=== PATIENT | female | born 1970 | race Hispanic/Latino ===

== ENCOUNTER 2016-08-27 16:09 | Emergency (ER) | payer SELFPAY ==
[2016-08-27 16:33] VITALS: BP 143/86
--- NOTE | 2016-08-27 16:46 | Emergency Department Report ---
Chief Complaint: Chest Pain Stated Complaint: MENTAL EVALUATION/BODY PAIN Time Seen by Provider: 08/27/16 16:42 - HPI History of Present Illness: Patient here reports that she woke up in the house and didn't know where she was. She says she thinks she was awake but not sure. She says she's having difficulty breathing and chest pain. She reports that she is suicidal and plan to kill himself by pulling up her heart with crack. Patient says she spent the last 4 days doing crack cocaine. She says she used over $1000 worth of crack cocaine over 4 days. She is complaining the chest pain on the left side is radiating down her left arm. Reports nausea and vomiting. Denies any history of heart disease. She reports she has family history of heart disease. Patient said she is depressed because of the holidays and she doesn't have anyone. He denies any suicide ideation. He reports pain is 10 out of 10 to her chest and it feels like pressure. - ROS Review of Systems: All systems are negative unless stated in HPI above. - Exam Vital Signs: Vital Signs 08/27/16 16:27 Temperature 98.6 F Pulse Rate 89 Respiratory 18 Rate Blood Pressure 143/86 O2 Sat by Pulse 100 Oximetry Physical Exam: General: This is a 46-year-old female well-nourished well-developed appears to be sad and tearful. Psych: Positive suicide ideation with plan to overdose on crack cocaine. Denies any homicidal ideation. Denies any hallucination. CV: S1, S2. Regular Rate and rhythm. MSE screening note: Focused history and physical exam performed. Due to findings the following was ordered:see [facility] ED Medical Decision Making - Medical Decision Making Medical decision making: Patient seen by provider in triage area. Appropriate protocol activated and patient to main ED to be seen by physician. ED Disposition for MSE Condition: Stable
[2016-08-27 16:58] LABS: Basophils % (Auto) 0.5 % (0.0-1.8); Eosinophils % (Auto) 1.1 % (0.0-4.3); Hematocrit 44.6 % (30.3-42.9); Hemoglobin 14.9 gm/dl (10.1-14.3); Mean Corpuscular HGB Conc 34 % (30-34); Mean Corpuscular Hemoglobin 30 pg (28-32); Mean Corpuscular Volume 89 fl (79-97); Platelet Count 383 K/mm3 (140-440); Red Cell Distribution Width 14.1 % (13.2-15.2); White Blood Count 10.4 K/mm3 (4.5-11.0)
--- NOTE | 2016-08-27 17:08 | Emergency Department Report ---
HPI - General Chief Complaint: Chest Pain Time Seen by Provider: 08/27/16 16:42 - HPI HPI: Allison 16 The patient is a 46-year-old female presenting with a chief complaint of suicidal ideation. The patient states she has felt suicidal for 1 week. The patient stated "I tried to blow my heart up"by consuming without [place] crack over 4 days. Patient states she awakened and abandoned building and made a report with the community service patrol officer. The patient states this brought her to the ED for treatment. Patient denies any other ingestions. When asked how she is feeling the patient states she just "aches all over." Location: Mental state, see above Duration: [see above] Quality: Suicidal Severity: Severe Modifying factors: [see above] Context: [see above] Mode of transportation: [not driving] ED Past Medical Hx - Past Medical History Hx Hypertension: Yes Hx GERD: Yes Hx Psychiatric Treatment: Yes (substance abuse, alcoholism) Additional medical history: History of SVT status post cardiac ablation, Obesity - Surgical History Additional Surgical History: Heart ablation, Bariatric surgery, 3 - Family History Family history: no significant - Social History Smoking Status: Current Every Day Smoker (1/2 pack per day) Substance Use Type: Cocaine, Prescribed - Medications Home Medications: Home Medications Medication Instructions Recorded Confirmed Last Taken Type Calcium Carbonate [Calcium] 500 mg PO DAILY 06/22/16 06/22/16 06/22/16 History Lurasidone HCl [Latuda] 120 mg PO QDAY 06/22/16 06/22/16 06/21/16 History Multivitamin with Iron 1 tab PO DAILY 06/22/16 06/22/16 06/22/16 History Omeprazole Magnesium [PriLOSEC Otc] 40 mg PO DAILY 06/22/16 06/22/16 06/22/16 History Quetiapine Fumarate [SEROquel XR] 300 mg PO QDAY 06/22/16 06/22/16 06/14/16 History Rosuvastatin (Nf) [Crestor] 20 mg PO QHS 06/22/16 06/22/16 06/22/16 History Vitamin B-12 1 tab PO DAILY 06/22/16 06/22/16 06/22/16 History lamoTRIgine [LaMICtal] 180 mg PO BID 06/22/16 06/22/16 06/22/16 History ED Review of Systems ROS: Stated complaint: MENTAL EVALUATION/BODY PAIN Other details as noted in HPI Comment: All other systems reviewed and negative Constitutional: denies: chills, fever Eyes: denies: eye pain, eye discharge, vision change ENT: denies: ear pain, throat pain Respiratory: denies: cough, shortness of breath, wheezing Cardiovascular: denies: chest pain, palpitations Endocrine: no symptoms reported Gastrointestinal: denies: abdominal pain, nausea, diarrhea Genitourinary: denies: urgency, dysuria, discharge Musculoskeletal: myalgia Skin: denies: rash, lesions Neurological: denies: headache, weakness, paresthesias Psychiatric: suicidal thoughts Hematological/Lymphatic: denies: easy bleeding, easy bruising Physical Exam - Physical Exam Vital Signs: Vital Signs 08/27/16 16:27 Temperature 98.6 F Pulse Rate 89 Respiratory 18 Rate Blood Pressure 143/86 O2 Sat by Pulse 100 Oximetry Physical Exam: GENERAL: The patient is well-developed female lying on stretcher not appearing to be in acute distress HEENT: Normocephalic. Atraumatic. Extraocular motions are intact. Patient has moist mucous membranes. NECK: Supple. Trachea midline CHEST/LUNGS: Clear to auscultation. There is no respiratory distress noted. HEART/CARDIOVASCULAR: Regular. There is no tachycardia. There is no gallop rub or murmur. ABDOMEN: Abdomen is soft, nontender. Patient has normal bowel sounds. There is no abdominal distention. SKIN: There is no rash. There is no edema. There is no diaphoresis. NEURO: The patient is awake, alert, and oriented. The patient is cooperative. The patient has normal speech MUSCULOSKELETAL:There is no evidence of acute injury. ED Course Vital Signs 08/27/16 16:27 Temperature 98.6 F Pulse Rate 89 Respiratory 18 Rate Blood Pressure 143/86 O2 Sat by Pulse 100 Oximetry ED Medical Decision Making - Lab Data Result diagrams: 08/27/16 16:44 08/27/16 16:44 Laboratory Results - last 24 hr 08/27/16 08/27/16 08/27/16 16:44 16:44 16:44 WBC 10.4 RBC 5.00 Hgb 14.9 H Hct 44.6 H MCV 89 MCH 30 MCHC 34 RDW 14.1 Plt Count 383 Lymph % (Auto) 15.7 [place] % (Auto) 5.6 Eos % (Auto) 1.1 Baso % (Auto) 0.5 Lymph # 1.6 [place] # 0.6 Eos # 0.1 Baso # 0.1 Seg Neutrophils % 77.1 H Seg Neutrophils # 8.0 H Sodium 140 Potassium 3.4 L Chloride 97.3 L Carbon Dioxide 25 Anion Gap 21 BUN 19 H Creatinine 0.7 Estimated GFR > 60 BUN/Creatinine Ratio 27.14 Glucose 114 H Calcium 9.3 Total Bilirubin Direct Bilirubin Indirect Bilirubin AST ALT Alkaline Phosphatase Total Creatine Kinase CK-MB (CK-2) CK-MB (CK-2) Rel Index Troponin T < 0.010 Total Protein Albumin Albumin/Globulin Ratio Urine Color Urine Turbidity Urine pH Ur Specific Sandy Urine Protein Urine Glucose (UA) Urine Ketones Urine Blood Urine Nitrite Urine Bilirubin Urine Urobilinogen Ur Leukocyte Esterase Urine WBC (Auto) Urine RBC (Auto) U Epithel Cells (Auto) Urine Bacteria (Auto) Urine Mucus Urine HCG, Qual Salicylates Urine Opiates Screen Urine Methadone Screen Acetaminophen Ur Barbiturates Screen Ur Phencyclidine Scrn Ur Amphetamines Screen U Benzodiazepines Scrn Urine Cocaine Screen U Marijuana (THC) Screen Drugs of Abuse Note Plasma/Serum Alcohol < 0.01 08/27/16 08/27/16 08/27/16 16:44 16:44 17:00 WBC RBC Hgb Hct MCV MCH MCHC RDW Plt Count Lymph % (Auto) [place] % (Auto) Eos % (Auto) Baso % (Auto) Lymph # [place] # Eos # Baso # Seg Neutrophils % Seg Neutrophils # Sodium Potassium Chloride Carbon Dioxide Anion Gap BUN Creatinine Estimated GFR BUN/Creatinine Ratio Glucose Calcium Total Bilirubin 0.6 Direct Bilirubin < 0.2 Indirect Bilirubin 0.4 AST 17 ALT 16 Alkaline Phosphatase 81 Total Creatine Kinase 107 CK-MB (CK-2) 4.4 H CK-MB (CK-2) Rel Index 4.1 H Troponin T Total Protein 7.0 Albumin 4.3 Albumin/Globulin Ratio 1.6 Urine Color Urine Turbidity Urine pH Ur Specific Sandy Urine Protein Urine Glucose (UA) Urine Ketones Urine Blood Urine Nitrite Urine Bilirubin Urine Urobilinogen Ur Leukocyte Esterase Urine WBC (Auto) Urine RBC (Auto) U Epithel Cells (Auto) Urine Bacteria (Auto) Urine Mucus Urine HCG, Qual Salicylates < 0.3 L Urine Opiates Screen Urine Methadone Screen Acetaminophen Ur Barbiturates Screen Ur Phencyclidine Scrn Ur Amphetamines Screen U Benzodiazepines Scrn Urine Cocaine Screen U Marijuana (THC) Screen Drugs of Abuse Note Plasma/Serum Alcohol 08/27/16 08/27/16 08/27/16 17:00 17:05 17:05 WBC RBC Hgb Hct MCV MCH MCHC RDW Plt Count Lymph % (Auto) [place] % (Auto) Eos % (Auto) Baso % (Auto) Lymph # [place] # Eos # Baso # Seg Neutrophils % Seg Neutrophils # Sodium Potassium Chloride Carbon Dioxide Anion Gap BUN Creatinine Estimated GFR BUN/Creatinine Ratio Glucose Calcium Total Bilirubin Direct Bilirubin Indirect Bilirubin AST ALT Alkaline Phosphatase Total Creatine Kinase CK-MB (CK-2) CK-MB (CK-2) Rel Index Troponin T Total Protein Albumin Albumin/Globulin Ratio Urine Color Devora Urine Turbidity Cloudy Urine pH 5.0 Ur Specific Sandy 1.031 H Urine Protein 100 mg/dl Urine Glucose (UA) Neg Urine Ketones 80 Urine Blood Sm Urine Nitrite Neg Urine Bilirubin Neg Urine Urobilinogen 2.0 Ur Leukocyte Esterase Neg Urine WBC (Auto) 3.0 Urine RBC (Auto) 7.0 U Epithel Cells (Auto) 14.0 H Urine Bacteria (Auto) 1+ Urine Mucus 3+ Urine HCG, Qual Negative Salicylates Urine Opiates Screen Presumptive negative Urine Methadone Screen Presumptive negative Acetaminophen < 15.0 Ur Barbiturates Screen Presumptive negative Ur Phencyclidine Scrn Presumptive negative Ur Amphetamines Screen Presumptive negative U Benzodiazepines Scrn Presumptive negative Urine Cocaine Screen Presumptive positive U Marijuana (THC) Screen Presumptive positive Drugs of Abuse Note Disclamer Plasma/Serum Alcohol 08/27/16 19:12 WBC RBC Hgb Hct MCV MCH MCHC RDW Plt Count Lymph % (Auto) [place] % (Auto) Eos % (Auto) Baso % (Auto) Lymph # [place] # Eos # Baso # Seg Neutrophils % Seg Neutrophils # Sodium Potassium Chloride Carbon Dioxide Anion Gap BUN Creatinine Estimated GFR BUN/Creatinine Ratio Glucose Calcium Total Bilirubin Direct Bilirubin Indirect Bilirubin AST ALT Alkaline Phosphatase Total Creatine Kinase CK-MB (CK-2) CK-MB (CK-2) Rel Index Troponin T < 0.010 Total Protein Albumin Albumin/Globulin Ratio Urine Color Urine Turbidity Urine pH Ur Specific Sandy Urine Protein Urine Glucose (UA) Urine Ketones Urine Blood Urine Nitrite Urine Bilirubin Urine Urobilinogen Ur Leukocyte Esterase Urine WBC (Auto) Urine RBC (Auto) U Epithel Cells (Auto) Urine Bacteria (Auto) Urine Mucus Urine HCG, Qual Salicylates Urine Opiates Screen Urine Methadone Screen Acetaminophen Ur Barbiturates Screen Ur Phencyclidine Scrn Ur Amphetamines Screen U Benzodiazepines Scrn Urine Cocaine Screen U Marijuana (THC) Screen Drugs of Abuse Note Plasma/Serum Alcohol - EKG Data -: EKG Interpreted by Me EKG shows normal: sinus rhythm Rate: normal - EKG Data When compared to previous EKG there are: previous EKG unavailable - Radiology Data Radiology results: image reviewed (chest x-ray) interpreted by me: Chest x-ray-no focal infiltrates, no pneumothorax - Differential Diagnosis suicidal ideation Critical care attestation.: If time is entered above; I have spent that time in minutes in the direct care of this critically ill patient, excluding procedure time. ED Disposition Clinical Impression: Suicidal ideation, Cocaine abuse Disposition: DC/TX PSY HOSP/PSY UNIT Is pt being admited?: No Does the pt Need Aspirin: No Condition: Fair Time of Disposition: 20:51 (awaiting acceptance)
[2016-08-27 17:18] LABS: BUN/Creatinine Ratio 27.14; Blood Urea Nitrogen 19 mg/dL (7-17); Calcium 9.3 mg/dL (8.4-10.2); Carbon Dioxide 25 mmol/L (22-30); Chloride 97.3 mmol/L (98-107); Glucose 114 mg/dL (65-100); Potassium 3.4 mmol/L (3.6-5.0); Sodium 140 mmol/L (137-145)
[2016-08-27 17:20] LABS: Anion Gap 21 mmol/L
[2016-08-27 17:27] LABS: Alanine Aminotransferase 16 units/L (7-56); Albumin 4.3 g/dL (3.9-5); Albumin/Globulin Ratio 1.6 %; Alkaline Phosphatase 81 units/L (35-129); Bilirubin,Total 0.6 mg/dL (0.1-1.2); Creatine Kinase MB 4.4 ng/mL (0.0-4.0)
[2016-08-27 17:30] LABS: Bilirubin,Direct < 0.2 mg/dL (0-0.2); Bilirubin,Indirect 0.4 mg/dL
[2016-08-27 18:46] LABS: Urine Drugs of Abuse Note Disclamer
[2016-08-27 19:13] LABS: Bacteria,Urine 1+ /HPF (Negative); Bilirubin,Urine NEG (Negative); Blood,Urine SM (Negative); Ketones,Urine 80 mg/dL (Negative); Leukocyte Esterase,Urine NEG (Negative); Mucus,Urine 3+ /HPF; Nitrite,Urine NEG (Negative)
[2016-08-27] MEDS ORDERED: VITAMIN B12 PO SCH (20:30)
[2016-08-27] MEDS ORDERED: NON-FORMULARY (Omeprazole Magnesium [Prilosec Otc] 40 MG) PO SCH (20:30)
[2016-08-27] MEDS ORDERED: MULTIVITAMIN WITH IRON PO SCH (20:30)
[2016-08-27] MEDS ORDERED: NON-FORMULARY (Lurasidone Hcl [Latuda] 120 MG) PO SCH (20:30)
[2016-08-27] MEDS ORDERED: NON-FORMULARY (Quetiapine Fumarate [Seroquel Xr] 300 MG) PO SCH (20:30)
[2016-08-27] MEDS ORDERED: FLEXERIL PO PRN (20:54)
[2016-08-27] MEDS ORDERED: OSCAL PO SCH (21:00)
[2016-08-27] MEDS ORDERED: NON-FORMULARY (Rosuvastatin (Nf) 20 MG) PO SCH (22:00)
[2016-08-27] MEDS ORDERED: LAMOTRIGINE PO SCH (22:00)
[2016-08-28] MEDS ORDERED: OSCAL PO SCH (10:00)
[2016-08-28] MEDS ORDERED: THERAGRAN-M Tab PO SCH (10:00)
[2016-08-28] MEDS ORDERED: PROTONIX PO SCH (10:00)
--- NOTE | 2016-08-29 11:02 | XRay Report ---
ROUTINE CHEST, TWO VIEWS: HISTORY: Shortness of breath. The trachea, heart, mediastinal contour, lung lopez and bony thorax are unremarkable. IMPRESSION: Unremarkable chest x-ray.
== END 2016-08-28 00:55 ==
LOC: ED 16:09
DX: R45.851 Suicidal ideations (principal); F14.10 Cocaine abuse, uncomplicated; I10 Essential (primary) hypertension; K21.9 Gastro-esophageal reflux disease without esophagitis; E66.9 Obesity, unspecified; F17.200 Nicotine dependence, unspecified, uncomplicated
CPT/HCPCS: 36415; 71020; 80048; 80074; 81001; 81025; 82550; 82553; 84484; 85025; 93005; 93010; 99285; A9270; G0479; G0480; 80307; 80320

== ENCOUNTER 2017-07-20 10:21 | Inpatient (IN) | payer MEDICARE ==
[2017-07-20 11:16] LABS: Basophils % (Auto) 0.8 % (0.0-1.8); Eosinophils % (Auto) 3.1 % (0.0-4.3); Hematocrit 41.3 % (30.3-42.9); Hemoglobin 14.2 gm/dl (10.1-14.3); Mean Corpuscular HGB Conc 34 % (30-34); Mean Corpuscular Hemoglobin 32 pg (28-32); Mean Corpuscular Volume 94 fl (79-97); Platelet Count 269 K/mm3 (140-440); Red Cell Distribution Width 13.5 % (13.2-15.2); White Blood Count 6.7 K/mm3 (4.5-11.0)
[2017-07-20 11:22] LABS: Urine Drugs of Abuse Note Disclamer
[2017-07-20 11:25] LABS: INR 0.89 (0.87-1.13); Partial Thromboplastin Time 27.5 Sec. (24.2-36.6)
[2017-07-20 11:42] LABS: Bilirubin,Urine NEG (Negative); Blood,Urine NEG (Negative); Ketones,Urine NEG (Negative); Leukocyte Esterase,Urine NEG (Negative); Nitrite,Urine NEG (Negative); Protein,Urine <15 mg/dL mg/dL (Negative); RBC,Urine < 1.0 /HPF (0.0-6.0); Urobilinogen,Urine < 2.0 mg/dL (<2.0)
[2017-07-20 11:48] LABS: Anion Gap 19 mmol/L; BUN/Creatinine Ratio 15; Blood Urea Nitrogen 9 mg/dL (7-17); Calcium 8.6 mg/dL (8.4-10.2); Carbon Dioxide 24 mmol/L (22-30); Glucose 95 mg/dL (65-100); Potassium 4.1 mmol/L (3.6-5.0); Sodium 143 mmol/L (137-145)
[2017-07-20] MEDS ORDERED: MORPHINE IV ONE (15:33)
[2017-07-20] MEDS ORDERED: PEPCID IV ONE (15:33)
[2017-07-20] MEDS ORDERED: NACL 0.9% 1000 ML 1,000 ML IV ONE (15:50)
--- NOTE | 2017-07-20 15:59 | Emergency Department Report ---
ED Chest Pain HPI - General Chief Complaint: Chest Pain Stated Complaint: CHEST PAIN X 5 DAYS Time Seen by Provider: 07/20/17 15:24 Source: patient Mode of arrival: Ambulatory Limitations: No Limitations - History of Present Illness Initial Comments: This is a 47-year-old female presents to the emergency department with complaint of some midsternal chest pain has been going on for the past 5 days. She says it worsens with eating and drinking and sometimes will cause sharp pains but otherwise she feels like it is a squeezing sensation. She denies any shortness of breath. She has a history of GERD, hypertension, previous substance abuse history and the patient has a history of SVT but has had a cardiac ablation since. 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 She came by EMS did not receive anything for her symptoms in route. Despite the patient's positive urine drug screen for cocaine, the patient denies any illicit drug use but does have a previous history of crack cocaine abuse. She denies any recent travel or sick contacts at home. - Related Data Home Medications Medication Instructions Recorded Confirmed Last Taken Calcium Carbonate [Calcium] 500 mg PO DAILY 06/22/16 07/20/17 07/20/17 Lurasidone HCl [Latuda] 120 mg PO QDAY 06/22/16 07/20/17 07/20/17 Quetiapine Fumarate [SEROquel XR] 300 mg PO QHS 06/22/16 07/20/17 07/19/17 Vitamin B-12 1 tab PO DAILY 06/22/16 07/20/17 07/20/17 lamoTRIgine [LaMICtal] 180 mg PO BID 06/22/16 07/20/17 07/20/17 Gabapentin [Neurontin] 400 mg PO BID 07/20/17 07/20/17 07/20/17 QUEtiapine [SEROquel] 50 mg PO DAILY 07/20/17 07/20/17 07/20/17 Allergies Allergy/AdvReac Type Severity Reaction Status Date / Time No Known Allergies Allergy Verified 08/27/16 16:26 Heart Score - HEART Score History: Slightly suspicious EKG: Normal Age: 45-65 Risk factors: 1-2 risk factors Troponin: < normal limit HEART Score: 2 - Critical Actions Critical Actions: 0-3 pts:0.9-1.7%risk of adverse cardiac event.Candidate for discharge ED Review of Systems ROS: Stated complaint: CHEST PAIN X 5 DAYS Other details as noted in HPI Comment: All other systems reviewed and negative Constitutional: denies: chills, fever Eyes: denies: eye pain, eye discharge, vision change ENT: denies: ear pain, throat pain Respiratory: denies: cough, shortness of breath, wheezing Cardiovascular: chest pain. denies: palpitations Gastrointestinal: nausea. denies: vomiting Genitourinary: denies: urgency, dysuria, discharge Musculoskeletal: denies: back pain, joint swelling, arthralgia Skin: denies: rash, lesions Neurological: denies: headache, weakness, paresthesias ED Past Medical Hx - Past Medical History Previous Medical History?: Yes Hx Hypertension: Yes Hx GERD: Yes Hx Psychiatric Treatment: Yes (substance abuse, alcoholism) Additional medical history: History of SVT status post cardiac ablation, Obesity - Surgical History Past Surgical History?: Yes Additional Surgical History: Heart ablation, Bariatric surgery, 3 - Social History Smoking Status: Current Every Day Smoker Substance Use Type: Alcohol - Medications Home Medications: Home Medications Medication Instructions Recorded Confirmed Last Taken Type Calcium Carbonate [Calcium] 500 mg PO DAILY 06/22/16 07/20/17 07/20/17 History Lurasidone HCl [Latuda] 120 mg PO QDAY 06/22/16 07/20/17 07/20/17 History Quetiapine Fumarate [SEROquel XR] 300 mg PO QHS 06/22/16 07/20/17 07/19/17 History Vitamin B-12 1 tab PO DAILY 06/22/16 07/20/17 07/20/17 History lamoTRIgine [LaMICtal] 180 mg PO BID 06/22/16 07/20/17 07/20/17 History Gabapentin [Neurontin] 400 mg PO BID 07/20/17 07/20/17 07/20/17 History QUEtiapine [SEROquel] 50 mg PO DAILY 07/20/17 07/20/17 07/20/17 History ED Physical Exam - General Limitations: No Limitations - Other Other exam information: GENERAL: The patient is well-developed well-nourished. HENT: Normocephalic. Atraumatic. Patient has moist mucous membranes. EYES: Extraocular motions are intact. Pupils equal reactive to light bilaterally. NECK: Supple. Trachea is midline. CHEST/LUNGS: Clear to auscultation. There is no respiratory distress noted. Chest pain is not reproducible to palpation of the chest wall. HEART/CARDIOVASCULAR: Regular. There is no tachycardia. There is no gallop rub or murmur. ABDOMEN: Abdomen is soft, nontender. Patient has normal bowel sounds. There is no abdominal distention. SKIN: Skin is warm and dry. NEURO: The patient is awake, alert, and oriented. The patient is cooperative. The patient has no focal neurologic deficits. The patient has normal speech. MUSCULOSKELETAL: There is no tenderness or deformity. There is no limitation range of motion. There is no evidence of acute injury.r ED Course Vital Signs 07/20/17 07/20/17 07/20/17 10:37 15:30 16:01 Temperature 97.6 F Pulse Rate 79 78 73 Respiratory 16 14 11 L Rate Blood Pressure 129/79 109/49 128/85 O2 Sat by Pulse 98 81 L 97 Oximetry 07/20/17 07/20/17 07/20/17 16:30 17:01 17:30 Temperature Pulse Rate 69 82 78 Respiratory 18 19 17 Rate Blood Pressure 125/74 125/74 113/58 O2 Sat by Pulse 96 96 97 Oximetry 07/20/17 07/20/17 18:00 18:31 Temperature Pulse Rate 85 86 Respiratory 16 20 Rate Blood Pressure 122/68 113/77 O2 Sat by Pulse 97 97 Oximetry ESTELA score - Estela Score Age > 65: (0) No Aspirin use within the Past 7 Days: (0) No 3 or more CAD Risk Factors: (0) No 2 or more Angina events in past 24 hrs: (1) Yes Known CAD with more than 50% Stenosis: (0) No Elevated Cardiac Markers: (0) No ST Deviation Greater than 0.5mm: (0) No ESTELA Score: 1 ED Medical Decision Making - Lab Data Result diagrams: 07/20/17 10:58 07/20/17 10:58 - EKG Data -: EKG Interpreted by Wi EKG shows normal: sinus rhythm, axis, intervals, QRS complexes, ST-T waves Rate: normal - EKG Data When compared to previous EKG there are: previous EKG unavailable Interpretation: normal EKG - Radiology Data Radiology results: image reviewed interpreted by me: Chest x-ray does not show any acute process. There are no pleural effusions, obvious pneumonia and there is no pneumothorax. - Medical Decision Making 47-year-old female presents with a 5 day history of some chest discomfort. EKG does not show any ST elevation TN, ischemia or dysrhythmia. Labs have been mostly unremarkable including negative troponins 2 and a negative d-dimer. Chest x-ray does not show any acute process. However the patient has not had a full cardiac workup recently and continues to have chest discomfort and will be admitted to the hospital for further evaluation and treatment and has been accepted for admission by the hospitalist, Dr Soto. - Differential Diagnosis TN, PE, Costochondritis, GERD Critical Care Time: No Critical care attestation.: If time is entered above; I have spent that time in minutes in the direct care of this critically ill patient, excluding procedure time. ED Disposition Clinical Impression: Chest pain Qualifiers: Chest pain type: unspecified Qualified Code(s): R07.9 - Chest pain, unspecified Disposition: -09 OP ADMIT IP TO THIS HOSP Is pt being admited?: Yes Condition: Stable Time of Disposition: 20:34
--- NOTE | 2017-07-20 18:20 | XRay Report ---
FINAL REPORT EXAM: XR CHEST 1V AP HISTORY: CP TECHNIQUE: upright single view chest PRIORS: None. FINDINGS: Cardiac and mediastinal contours are unremarkable. No focal pulmonary infiltrate is identified. No pleural fluid collection seen. Pulmonary vasculature is unremarkable. IMPRESSION: Negative single-view chest
[2017-07-20] MEDS ORDERED: ZOFRAN IV PRN (18:24)
[2017-07-20] MEDS ORDERED: TYLENOL PO PRN (18:25)
[2017-07-20] MEDS ORDERED: NITROSTAT SL PRN (18:30)
[2017-07-20] MEDS ORDERED: LAMOTRIGINE PO SCH (22:00)
[2017-07-20] MEDS: MORPHINE IV PRN (22:03)
[2017-07-20] MEDS: NON-FORMULARY (Quetiapine Fumarate [Seroquel Xr] 300 MG) PO SCH (22:03)
[2017-07-20] MEDS: HEPARIN SUB-Q SCH (22:04)
[2017-07-20] MEDS: NITRO-BID 2% TP SCH (22:04)
[2017-07-20] MEDS: LaMICtal PO SCH (22:05)
[2017-07-20] MEDS: NEURONTIN PO SCH (22:05)
--- NOTE | 2017-07-20 23:24 | History and Physical Report ---
CHIEF COMPLAINT: Chest pain. HISTORY OF PRESENTING ILLNESS: The patient is a 47-year-old female, who presented to the Emergency Room with epigastric and midsternal chest pain going on for about 5 days. The pain is worse with eating and drinking. The patient stated that pain starts in the epigastric area and then radiates up to the midsternal and both anterior chest wall area. Pain feels sharp and sometimes squeezing in the chest. There is history of associated shortness of breath with no history of diaphoresis. No history of nausea and vomiting. Also patient denies history of dizziness. PAST MEDICAL HISTORY: Significant for hypertension, gastroesophageal reflux disease, alcoholism, and substance. Also, the patient has past history of SVT. Obesity. PAST SURGICAL HISTORY: Pertinent for ablation treatment for irregular heartbeat, bariatric surgery, C-sections x 3. FAMILY HISTORY: Noncontributory. SOCIAL HISTORY: The patient drinks alcohol, smoke cigarette, and past history of illicit drug abuse. MEDICATIONS: The patient is on calcium carbonate 500 mg by mouth daily, loratadine, Latuda 120 mg daily, multivitamin with iron 1 by mouth daily. The patient is also on omeprazole 40 mg daily. The patient is on Crestor 20 mg by mouth daily and then Seroquel XR 300 mg, po daily. The patient is also on Lamictal 180 mg daily. ALLERGIES: There are no known drug allergies. REVIEW OF SYSTEMS: CONSTITUTIONAL: There is no fever, no chills, no diaphoresis. HEENT: There is no headache or sore throat. CARDIOVASCULAR SYSTEM: There is chest pain with no orthopnea. RESPIRATORY SYSTEM: There is shortness of breath and no cough. GASTROINTESTINAL SYSTEM: There is no nausea, no vomiting. There is epigastric abdominal pain with no diarrhea or constipation. NEUROLOGICAL SYSTEM: There is no numbness, no dizziness, no altered mental status. MUSCULOSKELETAL SYSTEM: There is no joint pain or swelling. DERMATOLOGICAL SYSTEM: There is no skin rash or itching. GENITOURINARY SYSTEM: There is no dysuria or hematuria or flank pain. Rest of system review is normal. PHYSICAL EXAMINATION: GENERAL: At the time of exam, the patient was found to be alert, oriented x 3 and not in acute stress. VITAL SIGNS: Shows normal temperature with pulse of 86 with respiration 20, blood pressure 113/77, O2 sat of 97% on room air. HEENT: Exam shows pupils to be equal, round, reactive to light and accommodation. Extraocular motions are intact. NECK: Neck is supple with no JVD or carotid bruit. CARDIOVASCULAR SYSTEM: Show normal first and second heart sounds with no gallops or murmurs. RESPIRATORY SYSTEM: Show good air entry on both sides of the lung. No abnormal breath sounds. GASTROINTESTINAL SYSTEM: Show abdomen to be full, soft, and nontender with no organomegaly or rigidity. NEUROLOGICAL: Neuro exam shows no focal deficits. MUSCULOSKELETAL SYSTEM: Show no joint swelling or tenderness. DERMATOLOGICAL SYSTEM: Show no skin rash. GENITOURINARY SYSTEM: Showing no costovertebral angle tenderness. PERTINENT LABORATORY AND IMAGING STUDIES: The patient has urine drug screen done that is positive for cocaine. The patient's urinalysis was unremarkable. Cardiac enzymes, troponin came back normal. Chemistry was unremarkable. The patient's CBC showed normal white count, normal hemoglobin, and normal hematocrit with CBC differential showing elevated segmented neutrophil count of 80.1% with no significant band. Coagulation studies came back normal and patient's D-dimer was unremarkable. IMAGING STUDIES: The patient had chest x-ray done that came back unremarkable. DIAGNOSES: 1. Chest pain. 2. Cocaine abuse. PLAN: The patient will be admitted to medical floor on telemetry and we will have cardiac enzymes checked q.6 hours x 2. The patient will be on nitro paste 0.5 inch anterior chest wall q.i.d. The patient will also be on sublingual nitroglycerin for breakthrough chest pain and will be on morphine 2 mg IV every 3 hours as needed for pain. The patient will be on Tylenol 650 mg every 4 hours for fever and headache and aspirin 325 mg daily. Deep venous thrombosis prophylaxis will be through heparin 5000 units subq q. 12. The patient will be on IV Zofran 4 mg every 6 hours for nausea and vomiting. The patient will also be on oxygen by nasal cannula at 2 liters per minute and will remain n.p.o. for Lexiscan stress test in the morning. The patient's home medications will be applied and shown in the medication reconciliation section. JOB# [id number] OCN/NTS MTDD
[2017-07-21 02:49] LABS: Creatine Kinase 34 units/L (30-135); Creatine Kinase MB < 1.0 ng/mL (0.0-4.0)
[2017-07-21] MEDS: MORPHINE IV PRN ×4 (04:59→21:36)
[2017-07-21 06:02] LABS: Creatine Kinase 33 units/L (30-135)
[2017-07-21] MEDS ORDERED: VITAMIN B12 PO SCH (10:00)
[2017-07-21] MEDS ORDERED: NON-FORMULARY (Lurasidone Hcl [Latuda] 120 MG) PO SCH (10:00)
[2017-07-21] MEDS ORDERED: ASPIRIN PO SCH (10:00)
[2017-07-21] MEDS ORDERED: LEXISCAN IV ONE ×2 (10:26→10:27)
[2017-07-21] MEDS ORDERED: MORPHINE IV PRN (11:40)
[2017-07-21] MEDS ORDERED: Fluarix Quad 2017-2018(36 MOS+ IM ONE (12:00)
--- NOTE | 2017-07-21 13:38 | Progress Note ---
Assessment and Plan Assessment and plan: --Angina; rule out acute coronary syndrome, aspirin and beta blockers sandra inhibitors, follow heart, cardiology evaluation if needed --Epigastric pain and bloating/status post gastric bypass surgery; supportive care, CT abdomen a.m., GI evaluation --History of bipolar; continue current psych medications, consider psych evaluation if needed --Peripheral neuropathy; continue Neurontin --Ongoing tobacco use; smoking cessation counseling done advised nicotine patch --Chronic pain syndrome; supportive care and pain medications Patient may need to see pain management upon discharge --Obesity; BMI 34.2; counseling done advised diet modification exercise as tolerated and weight reduction when medically stable --DVT prophylaxis; heparin Closely monitor the patient and adjust the management as needed Plan of care discussed with the patient and her nurse History Interval history: Patient seen and examined medical records reviewed Admitted with chest pain, scheduled for stress test Patient also complains of epigastric pain and bloating Has history of gastric bypass surgery Denies nausea or vomiting Hospitalist Physical - Constitutional Vitals: Temp Pulse Resp BP Pulse Ox 97.7 F 86 18 140/81 96 07/21/17 13:08 07/21/17 13:08 07/21/17 13:08 07/21/17 13:08 07/21/17 13:08 General appearance: Present: mild distress, well-nourished, obese - EENT Eyes: Present: PERRL, EOM intact - Neck Neck: Present: supple, normal ROM - Respiratory Respiratory effort: normal Respiratory: bilateral: diminished, negative: rales, rhonchi, wheezing - Cardiovascular Rhythm: regular Heart Sounds: Present: S1 & S2 - Extremities Extremities: no ischemia, No edema - Abdominal General gastrointestinal: soft, non-tender, non-distended, normal bowel sounds - Integumentary Integumentary: Present: clear, warm - Psychiatric Psychiatric: appropriate mood/affect, cooperative - Neurologic Neurologic: CNII-XII intact, moves all extremities Results - Labs CBC & Chem 7: 07/20/17 10:58 07/20/17 10:58 Labs: Laboratory Last Values WBC 6.7 K/mm3 (4.5-11.0) 07/20/17 10:58 RBC 4.40 M/mm3 (3.65-5.03) 07/20/17 10:58 Hgb 14.2 gm/dl (10.1-14.3) 07/20/17 10:58 Hct 41.3 % (30.3-42.9) 07/20/17 10:58 MCV 94 fl (79-97) 07/20/17 10:58 MCH 32 pg (28-32) 07/20/17 10:58 MCHC 34 % (30-34) 07/20/17 10:58 RDW 13.5 % (13.2-15.2) 07/20/17 10:58 Plt Count 269 K/mm3 (140-440) 07/20/17 10:58 Lymph % (Auto) 9.8 % (13.4-35.0) L 07/20/17 10:58 [place] % (Auto) 6.2 % (0.0-7.3) 07/20/17 10:58 Eos % (Auto) 3.1 % (0.0-4.3) 07/20/17 10:58 Baso % (Auto) 0.8 % (0.0-1.8) 07/20/17 10:58 Lymph # 0.7 K/mm3 (1.2-5.4) L 07/20/17 10:58 [place] # 0.4 K/mm3 (0.0-0.8) 07/20/17 10:58 Eos # 0.2 K/mm3 (0.0-0.4) 07/20/17 10:58 Baso # 0.1 K/mm3 (0.0-0.1) 07/20/17 10:58 Seg Neutrophils % 80.1 % (40.0-70.0) H 07/20/17 10:58 Seg Neutrophils # 5.4 K/mm3 (1.8-7.7) 07/20/17 10:58 PT 12.5 Sec. (12.2-14.9) 07/20/17 10:58 INR 0.89 (0.87-1.13) 07/20/17 10:58 APTT 27.5 Sec. (24.2-36.6) 07/20/17 10:58 D-Dimer < 135.00 ng/mlDDU (0-234) 07/20/17 15:43 Sodium 143 mmol/L (137-145) 07/20/17 10:58 Potassium 4.1 mmol/L (3.6-5.0) 07/20/17 10:58 Chloride 104.0 mmol/L (98-107) 07/20/17 10:58 Carbon Dioxide 24 mmol/L (22-30) 07/20/17 10:58 Anion Gap 19 mmol/L 07/20/17 10:58 BUN 9 mg/dL (7-17) 07/20/17 10:58 Creatinine 0.6 mg/dL (0.7-1.2) L 07/20/17 10:58 Estimated GFR > 60 ml/min 07/20/17 10:58 BUN/Creatinine Ratio 15 % 07/20/17 10:58 Glucose 95 mg/dL (65-100) 07/20/17 10:58 Calcium 8.6 mg/dL (8.4-10.2) 07/20/17 10:58 Total Creatine Kinase 33 units/L (30-135) 07/21/17 05:08 CK-MB (CK-2) 1.0 ng/mL (0.0-4.0) 07/21/17 05:08 CK-MB (CK-2) Rel Index 3.0 (0-4) 07/21/17 05:08 Troponin T < 0.010 ng/mL (0.00-0.029) 07/21/17 05:08 HCG, Qual Negative (Negative) 07/20/17 10:58 Urine Color Yellow (Yellow) 07/20/17 Unknown Urine Turbidity Clear (Clear) 07/20/17 Unknown Urine pH 6.0 (5.0-7.0) 07/20/17 Unknown Ur Specific [place] 1.005 (1.003-1.030) 07/20/17 Unknown Urine Protein <15 mg/dl mg/dL (Negative) 07/20/17 Unknown Urine Glucose (UA) Neg mg/dL (Negative) 07/20/17 Unknown Urine Ketones Neg mg/dL (Negative) 07/20/17 Unknown Urine Blood Neg (Negative) 07/20/17 Unknown Urine Nitrite Neg (Negative) 07/20/17 Unknown Ur Reducing Substances Not Reportable 07/20/17 Unknown Urine Bilirubin Neg (Negative) 07/20/17 Unknown Urine Ictotest Not Reportable 07/20/17 Unknown Urine Urobilinogen < 2.0 mg/dL (<2.0) 07/20/17 Unknown Ur Leukocyte Esterase Neg (Negative) 07/20/17 Unknown Urine WBC (Auto) 1.0 /HPF (0.0-6.0) 07/20/17 Unknown Urine RBC (Auto) < 1.0 /HPF (0.0-6.0) 07/20/17 Unknown U Epithel Cells (Auto) 1.0 /HPF (0-13.0) 07/20/17 Unknown Urine Opiates Screen Presumptive negative 07/20/17 Unknown Urine Methadone Screen Presumptive negative 07/20/17 Unknown Ur Barbiturates Screen Presumptive negative 07/20/17 Unknown Ur Phencyclidine Scrn Presumptive negative 07/20/17 Unknown Ur Amphetamines Screen Presumptive negative 07/20/17 Unknown U Benzodiazepines Scrn Presumptive negative 07/20/17 Unknown Urine Cocaine Screen Presumptive positive 07/20/17 Unknown U Marijuana (THC) Screen Presumptive negative 07/20/17 Unknown Drugs of Abuse Note Disclamer 07/20/17 Unknown
[2017-07-21] MEDS: HABITROL TD SCH (13:54)
[2017-07-21] MEDS: NEURONTIN PO SCH ×2 (13:55→21:36)
[2017-07-21] MEDS: LaMICtal PO SCH ×2 (13:55→21:36)
[2017-07-21] MEDS: OSCAL PO SCH (13:55)
[2017-07-21] MEDS: NITRO-BID 2% TP SCH ×4 (13:58→21:37)
[2017-07-21] MEDS: HEPARIN SUB-Q SCH ×2 (14:04→21:36)
--- NOTE | 2017-07-21 15:17 | Gastroenterology Consultation ---
Addendum entered and electronically signed by AMBER KENDRICK NP 07/21/17 15:25: check Lipase, CT of A/P in AM ( stress test today) Original Note: <AMBER KENDRICK - Last Filed: 07/21/17 15:17> History of Present Illness - Reason for Consult Consult date: 07/21/17 Chest Pain Requesting physician: [facility] O[facility] - History of Present Illness Ms. Mao is a 47 y/o female admitted with complaints of pain that begins in the lower epigastric area that radiates up into the chest and down her abdomen x 7 days. The pain is mainly exacerbated when she eats or drinks. She is s/p gastric bypass 1 year ago in [place] ( [place]). She denies any signs of GI bleeding. She has a hx of cardiac ablation 15 years ago. No NSAID use at home and she reports she has lost approximately 100lbs over the last year with minimal diet restrictions. Troponins have been negative and she underwent Stress test this AM with result pending. Past History Past Medical History: arrhythmia, hypertension, other (substance abuse) Past Surgical History: , Other (cardiac ablation, gastric bypass) Social history: other (hx of illegal drug use) Family history: no significant family history Medications and Allergies Allergies Allergy/AdvReac Type Severity Reaction Status Date / Time No Known Allergies Allergy Verified 08/27/16 16:26 Home Medications Medication Instructions Recorded Confirmed Last Taken Type Calcium Carbonate [Calcium] 500 mg PO DAILY 06/22/16 07/20/17 07/20/17 History Lurasidone HCl [Latuda] 120 mg PO QDAY 06/22/16 07/20/17 07/20/17 History Quetiapine Fumarate [SEROquel XR] 300 mg PO QHS 06/22/16 07/20/17 07/19/17 History Vitamin B-12 1 tab PO DAILY 06/22/16 07/20/17 07/20/17 History lamoTRIgine [LaMICtal] 180 mg PO BID 06/22/16 07/20/17 07/20/17 History Gabapentin [Neurontin] 400 mg PO BID 07/20/17 07/20/17 07/20/17 History QUEtiapine [SEROquel] 50 mg PO DAILY 07/20/17 07/20/17 07/20/17 History Active Meds: Active Medications Acetaminophen (Tylenol) 650 mg PO Q4H PRN PRN Reason: For Pain/Fever/Headache Aspirin (Aspirin) 325 mg PO QDAY [facility] Last Admin: 07/21/17 13:54 Dose: 325 mg Calcium Carbonate/Glycine (Oscal) 1,250 mg PO DAILY [facility] Last Admin: 07/21/17 13:55 Dose: 1,250 mg Gabapentin (Neurontin) 400 mg PO BID [facility] Last Admin: 07/21/17 13:55 Dose: 400 mg Heparin Sodium (Porcine) (Heparin) 5,000 unit SUB-Q Q12HR [facility] Last Admin: 07/21/17 14:04 Dose: 5,000 unit Lamotrigine (Lamictal) 150 mg PO BID [facility] Last Admin: 07/21/17 13:55 Dose: 150 mg Miscellaneous Medication (Lurasidone Hcl [Latuda]) 120 mg PO QDAY [facility] Miscellaneous Medication (Quetiapine Fumarate [Seroquel Xr]) 300 mg PO QHS [facility] Last Admin: 07/20/17 22:03 Dose: 300 mg Morphine Sulfate (Morphine) 2 mg IV Q6H PRN PRN Reason: Pain, Moderate (4-6) Nicotine (Habitrol) 21 mg TD QDAY [facility] Last Admin: 07/21/17 13:54 Dose: 21 mg Nitroglycerin (Nitrostat) 0.4 mg SL .Q5MIN PRN PRN Reason: Chest Pain Nitroglycerin (Nitro-Bid 2%) 0.5 inch TP QID [facility] PRN Reason: Protocol Last Admin: 07/21/17 14:01 Dose: Not Given Ondansetron HCl (Zofran) 4 mg IV Q6H PRN PRN Reason: Nausea And Vomiting Last Admin: 07/21/17 04:59 Dose: 4 mg Oxycodone/Acetaminophen (Percocet 5/325) 1 tab PO Q6H PRN PRN Reason: Pain, Moderate (4-6) Quetiapine Fumarate (Seroquel) 50 mg PO DAILY [facility] Last Admin: 07/21/17 13:54 Dose: 50 mg Review of Systems - Review of Systems All systems: negative Constitutional: weight loss, poor appetite Cardiovascular: chest pain Gastrointestinal: abdominal pain Exam - Constitutional Vital Signs: Temp Pulse Resp BP Pulse Ox 97.7 F 90 18 140/80 96 07/21/17 13:08 07/21/17 13:58 07/21/17 13:08 07/21/17 13:58 07/21/17 13:08 General appearance: no acute distress - EENT Eyes: EOM intact ENT: hearing intact - Neck Neck: supple - Respiratory Respiratory: bilateral: wheezing (faint wheezing) - Cardiovascular Rhythm: regular Heart Sounds: Present: S1 & S2 - Gastrointestinal General gastrointestinal: Present: soft, tender (TTP epigastric area) - Integumentary Integumentary: Present: warm, dry - Neurologic Neurological: alert and oriented x3 - Psychiatric Psychiatric: appropriate mood/affect - Labs CBC & Chem 7: 07/20/17 10:58 07/20/17 10:58 Lab Results: Laboratory Results - last 24 hr 07/20/17 07/20/17 07/21/17 15:43 15:44 01:54 D-Dimer < 135.00 Total Creatine Kinase 34 CK-MB (CK-2) < 1.0 CK-MB (CK-2) Rel Index 2.9 Troponin T < 0.010 < 0.010 07/21/17 05:08 D-Dimer Total Creatine Kinase 33 CK-MB (CK-2) 1.0 CK-MB (CK-2) Rel Index 3.0 Troponin T < 0.010 Assessment and Plan 1. Chest Pain/ Epigastric pain 2. Hx of gastric bypass 1 yr ago 3. Hx of cardiac ablation 15 years ago -Troponins are negative -Stress test this AM, pending result. -CT abdomen -Pending stress test and CT scan, can consider EGD based on progress. -Diet as tolerated -PPI daily. <DAMIEN WHELAN - Last Filed: 07/21/17 21:52> Medications and Allergies Active Meds: Active Medications Acetaminophen (Tylenol) 650 mg PO Q4H PRN PRN Reason: For Pain/Fever/Headache Aspirin (Aspirin) 325 mg PO QDAY [facility] Last Admin: 07/21/17 13:54 Dose: 325 mg Calcium Carbonate/Glycine (Oscal) 1,250 mg PO DAILY [facility] Last Admin: 07/21/17 13:55 Dose: 1,250 mg Gabapentin (Neurontin) 400 mg PO BID [facility] Last Admin: 07/21/17 21:36 Dose: 400 mg Heparin Sodium (Porcine) (Heparin) 5,000 unit SUB-Q Q12HR [facility] Last Admin: 07/21/17 21:36 Dose: 5,000 unit Lamotrigine (Lamictal) 150 mg PO BID [facility] Last Admin: 07/21/17 21:36 Dose: 150 mg Miscellaneous Medication (Lurasidone Hcl [Latuda]) 120 mg PO QDAY [facility] Miscellaneous Medication (Quetiapine Fumarate [Seroquel Xr]) 300 mg PO QHS [facility] Last Admin: 07/21/17 21:37 Dose: 300 mg Morphine Sulfate (Morphine) 2 mg IV Q6H PRN PRN Reason: Pain, Moderate (4-6) Last Admin: 07/21/17 21:36 Dose: 2 mg Nicotine (Habitrol) 21 mg TD QDAY [facility] Last Admin: 07/21/17 13:54 Dose: 21 mg Nitroglycerin (Nitrostat) 0.4 mg SL .Q5MIN PRN PRN Reason: Chest Pain Nitroglycerin (Nitro-Bid 2%) 0.5 inch TP QID [facility] PRN Reason: Protocol Last Admin: 07/21/17 21:37 Dose: Not Given Ondansetron HCl (Zofran) 4 mg IV Q6H PRN PRN Reason: Nausea And Vomiting Last Admin: 07/21/17 04:59 Dose: 4 mg Oxycodone/Acetaminophen (Percocet 5/325) 1 tab PO Q6H PRN PRN Reason: Pain, Moderate (4-6) Last Admin: 07/21/17 18:37 Dose: 1 tab Pantoprazole Sodium (Protonix) 40 mg PO QDAY [facility] Quetiapine Fumarate (Seroquel) 50 mg PO DAILY [facility] Last Admin: 07/21/17 13:54 Dose: 50 mg Exam - Constitutional Vital Signs: Temp Pulse Resp BP Pulse Ox 97.9 F 80 20 140/88 96 07/21/17 17:50 07/21/17 17:50 07/21/17 18:37 07/21/17 17:50 07/21/17 21:39 - Labs CBC & Chem 7: 07/20/17 10:58 07/20/17 10:58 Lab Results: Laboratory Results - last 24 hr 07/21/17 07/21/17 07/21/17 01:54 05:08 15:33 Total Creatine Kinase 34 33 CK-MB (CK-2) < 1.0 1.0 CK-MB (CK-2) Rel Index 2.9 3.0 Troponin T < 0.010 < 0.010 Lipase 25 Assessment and Plan Patient seen and examined. Agree with note by Masha Kendrick. Patient with h/o gastric bypass 1.5 years ago, presenting with new onset abdominal/chest pain. Pain associated with certain meals per pt. Denies NSAIDs. Stress test/cardiac work-up pending. Will obtain CT scan of abdomen. Consider EGD based on progress.
[2017-07-21] MEDS: PERCOCET 5/325 PO PRN (18:37)
[2017-07-21] MEDS: NON-FORMULARY (Quetiapine Fumarate [Seroquel Xr] 300 MG) PO SCH (21:37)
[2017-07-22] MEDS: PERCOCET 5/325 PO PRN ×2 (02:18→10:02)
[2017-07-22] MEDS: MORPHINE IV PRN ×2 (05:35→13:22)
[2017-07-22 06:06] VITALS: BP 110/54
[2017-07-22] MEDS ORDERED: PROTONIX PO SCH (10:00)
--- NOTE | 2017-07-22 10:53 | Cat Scan Report ---
CT ABDOMEN PELVIS WITH CONTRAST: HISTORY: Abdominal pain and. COMPARISON: none. TECHNIQUE: Helical CT in 1.25mm intervals following IV contrast. Sagittal and coronal reconstructions. FINDINGS: Lung bases: normal. Liver: normal. Biliary system: normal. Pancreas: normal. Spleen: normal. Kidneys/ureters/bladder: A 5 mm calyceal stone is noted at the inferior pole of the left kidney. No associated hydronephrosis. The kidneys, ureters and bladder are within normal limits otherwise. Adrenal glands: normal. Aorta: normal. Intestines: No evidence for obstruction or focal inflammation. Surgical suture lines are identified in the proximal stomach and mid small bowel, correlate with history. Appendix: normal. Pelvic viscera: normal. Musculoskeletal: normal. IMPRESSION: No acute abdominal process identified. 5 mm left renal stone. Surgical changes as described.
[2017-07-22] MEDS: NEURONTIN PO SCH (12:22)
[2017-07-22] MEDS: OSCAL PO SCH (12:23)
[2017-07-22] MEDS: LaMICtal PO SCH (12:23)
[2017-07-22] MEDS: NITRO-BID 2% TP SCH (12:23)
[2017-07-22] MEDS: HABITROL TD SCH (12:24)
[2017-07-22] MEDS: HEPARIN SUB-Q SCH (12:24)
--- NOTE | 2017-07-22 16:09 | Discharge Summary ---
Providers - Providers Date of Admission: 07/20/17 18:21 Date of discharge: 07/22/17 Attending physician: [facility] OTERO 07/21/17 13:28 Consult to Physician [CONS] Routine Consulting Provider: DAMIEN WHELAN Reason For Exam: epigastric pain/bloating,s/p Gastric bypass sx Place consult to:: Dr. Whelan Notified:: Gianna RANDALL Phone number called:: Was contact made?: Yes If yes, spoke with:: Cathie-Office Time called:: 14:20 Primary care physician: SACK LIFTER Hospitalization Reason for admission: epigastric and chest pain Condition: Stable Pertinent studies: Stress test negative Abdominal CT; no acute abnormality Hospital course: 47-year-old morbidly obese female patient with significant history of bypass surgery gastroesophageal reflux disease bipolar disorder was admitted through emergency room with epigastric and chest pain Admitted symptomatically managed, had stress test which was negative for reversible ischemia and normal ejection fraction Subsequently evaluated by [facility] pa[facility], CT abdomen and pelvis did not show any acute abnormalities, GI cleared and advised follow-up in the office upon discharge Patient was symptomatically managed, symptoms significantly improved Patient has chronic pain syndrome and requests more pain medications Today she is comfortable no new complaints Vital signs are stable, physical examination is unremarkable Patient is hemodynamically and clinically stable at discharge Discharge diagnosis: --Angina; it is stress test --Epigastric pain and bloating CT abdomen negative, --GERD --History of bipolar; follow psych --Peripheral neuropathy; on Neurontin --Ongoing tobacco use; smoking cessation --Chronic pain syndrome; --Obesity; BMI 34.2; counseling done Disposition: - TO HOME OR SELFCARE Time spent for discharge: 32 min Core Measure Documentation - Palliative Care Palliative Care/ Comfort Measures: Not Applicable - Core Measures Any of the following diagnoses?: none Exam - Constitutional Vitals: Temp Pulse Resp BP Pulse Ox 98.2 F 62 20 110/54 96 07/22/17 05:10 07/22/17 05:10 07/22/17 10:02 07/22/17 05:10 07/22/17 08:31 General appearance: Present: no acute distress, well-nourished, obese (morbidly obese) - EENT Eyes: Present: PERRL, EOM intact - Neck Neck: Present: supple, normal ROM - Respiratory Respiratory effort: normal Respiratory: negative: rales, rhonchi, wheezing - Cardiovascular Rhythm: regular Heart Sounds: Present: S1 & S2 - Extremities Extremities: no ischemia, No edema - Abdominal General gastrointestinal: Present: soft, non-tender, non-distended, normal bowel sounds - Integumentary Integumentary: Present: clear, warm - Musculoskeletal Musculoskeletal: strength equal bilaterally - Psychiatric Psychiatric: appropriate mood/affect, cooperative - Neurologic Neurologic: CNII-XII intact, moves all extremities Plan Activity: no restrictions Diet: regular, other (advise small portions of food multiple times) Special Instructions: smoking cessation Additional Instructions: If you have chest pain or shortness of breath, contact M.D. or go to emergency room Follow up with: PRIMARY CARE, [Primary Care Provider] - 3-5 Days DAMIEN WHELAN MD [Staff Physician] - 7 Days Prescriptions: Nicotine [Habitrol] 21 mg TD QDAY #30 patch Omeprazole Magnesium [PriLOSEC Otc] 20 mg PO QDAY #30 tablet. oxyCODONE /ACETAMINOPHEN [Percocet 5/325 mg] 1 tab PO QHS PRN #5 tablet PRN Reason: Pain, Moderate (4-6)
--- NOTE | 2017-07-22 16:25 | Gastroenterology Progress Note ---
Assessment and Plan abdominal pain - unclear etiology, possibly 2/2 cocaine use (vasoconstriction); symptoms appear to be improving. tolerated diet w/o n/v. Labs and CT scan unremarkable. stress test reportedly unremarkable as well. -discussed cocaine/illicit drug use cessation with pt -offered EGD as inpt vs outpt to r/o PUD/anastomotic ulcer from recent gastric bypass. she prefers to have this done as outpt -would empirically start PPI daily for the time being Follow-up in GI clinic in 2-3 weeks, with possible outpt endoscopy based on symptoms. Will sign off, please call as needed or with questions. Subjective Date of service: 07/22/17 Principal diagnosis: abdominal pain Interval history: pt still with abd pain but overall improved. Tolerating diet/lunch (mild abd pain, no n/v). Stress test reportedly negative. States she would like to go home. Objective - Constitutional Vitals: Temp Pulse Resp BP Pulse Ox 98.2 F 62 20 110/54 96 07/22/17 05:10 07/22/17 05:10 07/22/17 10:02 07/22/17 05:10 07/22/17 08:31 General appearance: no acute distress, obese - Respiratory Respiratory effort: normal Respiratory: bilateral: CTA - Cardiovascular Rhythm: regular Heart Sounds: Present: S1 & S2 - Gastrointestinal General gastrointestinal: Present: soft, non-tender, non-distended - Neurologic Neurological: alert and oriented x3 - Psychiatric Psychiatric: appropriate mood/affect - Labs CBC & Chem 7: 07/20/17 10:58 07/20/17 10:58 - Imaging CT scan: report reviewed
--- NOTE | 2017-07-23 01:55 | Treadmill Report ---
THALLIUM STRESS TEST LEFT VENTRICLE: Left ventricular chamber size is within normal spread. Perfusion study demonstrates fairly homogeneous uptake of the tracer in all segments, no significant perfusion defects identified. Gated analysis demonstrates normal left ventricular systolic function, ejection fraction 69%. CONCLUSION: Normal myocardial perfusion study. JOB# [id number] CA/NTS
== END 2017-07-22 17:52 | disposition home or self-care (01) | DRG 311 ==
LOC: ED 10:21 → 4A 18:21
PROVIDERS: ADMIT Internal Medicine; ATTEND Internal Medicine
PROC: 3E0234Z Introduction of Serum, Toxoid and Vaccine into Muscle, Percutaneous Approach (ICD-10-PCS; principal; 2017-07-21)
DX: I20.9 Angina pectoris, unspecified (principal); F14.10 Cocaine abuse, uncomplicated; R10.13 Epigastric pain; K21.9 Gastro-esophageal reflux disease without esophagitis; G62.9 Polyneuropathy, unspecified; G89.4 Chronic pain syndrome; E66.9 Obesity, unspecified; I10 Essential (primary) hypertension; F31.9 Bipolar disorder, unspecified; F17.200 Nicotine dependence, unspecified, uncomplicated; Z68.34 Body mass index [BMI] 34.0-34.9, adult; Z23 Encounter for immunization
CPT/HCPCS: 36415; 71010; 74177; 78452; 80048; 80307; 81001; 82550; 82553; 83690; 84484; 84703; 85025; 85379; 85610; 85730; 90471; 90686; 93005; 93010; 93017; 96361; 96374; 96375; 99406; A9502; G0008; J1644; J2270; J2405; J2785; J7030; Q9967